=== PATIENT | male | born 1950 | race Caucasian/White ===

== ENCOUNTER 2018-06-11 17:33 | Observation (INO) ==
[2018-06-11] MEDS ORDERED: Sod Chloride 0.9% Inj 1,000 ML IV.CONT SCH (18:00)
--- NOTE | 2018-06-11 18:11 | ED ---
HPI General Chief complaint: Medical Clearance Stated complaint: Dr Sent/OR Time Seen by Provider: 06/11/18 17:50 Source: patient Mode of arrival: ambulatory Limitations: no limitations History of Present Illness HPI Narrative: 67-year-old male complains of partial vision loss on the left eye. Patient started having a lot of floaters and flashes in from the left eye 3 days ago. Patient was seen by card cutter helper Dr. Sherman 3 days ago. Patient was advised to follow with him in 8 weeks from that visit. Patient was advised to go to emergency room immediately if any problem with vision loss. Patient states that he has a shadow in from the left eye since yesterday evening. Patient states that he lost two thirds of the vision field inferiorly since yesterday evening. Patient denies any eye pain. Patient was seen in emergency room this morning and was sent to see an card cutter helper Dr. Sullivan. Patient was advised that he has retinal detachment and required surgery to the left eye this evening. Patient was advised to go back to the emergency room at [facility] to be admitted for surgery. Patient has Lasik surgery to the eyes 3 years ago. Patient status post cataract surgery to the eyes a year and a half ago. Patient has history of hyperlipidemia. complaint: Reports medical clearance requested Onset (ago): day(s) Reason for Medical Clearance: medical condition Place: home Alleged Intoxication: No Compliant with Home Medications: Yes Traumatic Symptoms: Reports denies traumatic injury Associated Symptoms: Reports other (Partial vision loss left eye) Treatments Prior to Arrival: Reports none Home Medications Medication Instructions Recorded Confirmed aspirin [Aspir-81] 81 mg PO DAILY 06/11/18 06/11/18 multivitamin 1 tab PO DAILY 06/11/18 06/11/18 pravastatin 20 mg PO HS 06/11/18 06/11/18 Allergies Allergy/AdvReac Type Severity Reaction Status Date / Time No Known Allergies Allergy Verified 06/11/18 17:41 Review of Systems ROS: all other systems reviewed are negative [facility] Medical History Medical History Hyperlipidemia (Acute) Surgical History Surgical History History of tonsillectomy (Acute) Social History Social History Substance History: No History of Abuse Second Hand Smoke Exposure: No Smoking Status: Former smoker How Often Do You Have a Drink Containing Alcohol: 4 or more times a week Recent Travel in [facility] within the Last 8 Weeks: No Recent Out of Country Travel within the Last 8 Weeks: No Immunization History Tetanus Immunization: <5 Years Exam Narrative Exam Narrative: GENERAL: Well-nourished, well-developed patient. SKIN: Focused skin assessment warm/dry. HEAD: Normocephalic. EYES: No scleral icterus. No injection or drainage. Both eyes are dilated bilaterally. NECK: Supple, trachea midline. No JVD or lymphadenopathy. CARDIOVASCULAR: Regular rate and rhythm without murmurs, gallops, or rubs. RESPIRATORY: Breath sounds equal bilaterally. No accessory muscle use. GASTROINTESTINAL: Abdomen soft, non-tender, nondistended. MUSCULOSKELETAL: No cyanosis, or edema. BACK: Nontender without obvious deformity. No CVA tenderness. Neurologic exam normal. Course Initial Documented Vital Signs Temperature 98.0 F 06/11/18 17:39 Pulse Rate 118 H 06/11/18 17:39 Respiratory Rate 18 06/11/18 17:39 Blood Pressure 175/86 H 06/11/18 17:39 Pulse Oximetry 99 06/11/18 17:39 Last Documented Vital Signs Temperature 98.0 F 06/11/18 17:39 Pulse Rate 121 H 06/11/18 17:49 Respiratory Rate 17 06/11/18 17:49 Blood Pressure 175/86 H 06/11/18 17:49 Pulse Oximetry 100 06/11/18 17:49 Medical Decision Making MDM Narrative Medical decision making narrative: 67-year-old male with retinal detachment left eye. Needs medical clearance for surgery. Medical Screen Exam Complete: Yes Emergency Medical Condition: Yes Lab Data Result diagrams: 06/11/18 18:00 06/11/18 18:00 Lab Results 06/11/18 06/11/18 Range/Units 18:00 18:20 WBC 8.8 (4.0-11.0) th/mm3 RBC 4.88 (4.50-5.90) mil/mm3 Hgb 15.3 (13.0-17.0) gm/dL Hct 45.4 (39.0-51.0) % MCV 93.2 (80.0-100.0) fL MCH 31.4 (27.0-34.0) pg MCHC 33.7 (32.0-36.0) % RDW 14.0 (11.6-17.2) % Plt Count 371 (150-450) th/mm3 MPV 7.4 (7.0-11.0) fL Neut % (Auto) 56.5 (16.0-70.0) % Lymph % (Auto) 31.7 (9.0-44.0) % [place] % (Auto) 9.7 H (0.0-8.0) % Eos % (Auto) 1.3 (0.0-4.0) % Baso % (Auto) 0.8 (0.0-2.0) % Neut # (Auto) 5.0 (1.8-7.7) th/mm3 Lymph # (Auto) 2.8 (1.0-4.8) th/mm3 [place] # (Auto) 0.9 (0.0-0.9) th/mm3 Eos # (Auto) 0.1 (0.0-0.4) th/mm3 Baso # (Auto) 0.1 (0.0-0.2) th/mm3 WBC Differential . Differential Comment Auto diff final Urine Color Yellow (Yellw/Straw) Urine Clarity Hazy H (Clear) Urine pH 6.0 (5.0-8.5) Ur Specific [place] 1.014 (1.002-1.035) Urine Protein Negative (Neg-Trace) mg/dL Urine Glucose (UA) Negative (Negative) mg/dL Urine Ketones Trace H (Negative) mg/dL Urine Occult Blood Small H (Negative) Urine Nitrate Negative (Negative) Urine Bilirubin Negative (Negative) Urine Urobilinogen Less than 2 (Less than 2) mg/dL Ur Leukocyte Esterase Negative (Negative) Urine RBC 3 (0-3) /hpf Urine WBC 1 (0-5) /hpf Urine Mucus Few H (Occasional) /lpf Micro UA Comment Culture not ind Ur Microscopic Review Not Reportable Urine Culture Comments Culture not ind Imaging Data Radiologist's impression: Chest X-Ray 06/11/18 17:59 CONCLUSION: The lungs are hyperinflated consistent with COPD. No acute infiltrate or effusion. Discharge Plan Discharge Disposition Patient Disposition: ED Admit(ED Internal Use Only) Discharge Order Discharge Orders: ED Use Only Admit Order (Routine); Ordered 06/11/18 Ordered By: Raleigh Matos Discharge Details Diagnosis: Retinal detachment with retinal defect of left eye Physicians Team ED Provider: Raleigh Matos Primary Care Provider: Joyce Walton Attending Provider: Cholo Sullivan Status ED Status: Admitted Observation Patient
--- NOTE | 2018-06-11 18:18 | XR ---
EXAM DATE: 06/11/2018 6:13 PM EST AGE/SEX: 67 years / Male INDICATIONS: Patient was sent by his doctor for a detached retina. No chest complaints. CLINICAL DATA: This is the patient's initial encounter. Patient reports that signs and symptoms have been present for 2 days and indicates a pain score of 0/10. MEDICAL/SURGICAL HISTORY: None. None. [place] [facility] [place] . FINDINGS: 2 portable frontal views of the chest show the lungs to be hyperaerated. No infiltrate or effusion. H eart is normal in size. Degenerative thoracic spine. CONCLUSION: The lungs are hyperinflated consistent with COPD. No acute infiltrate or effusion. Electronically signed by: Antony Mendoza MD Board Certified Radiologist 06/11/2018 6:17 PM EST
[2018-06-11] MEDS ORDERED: Moxifloxacin 0.5% Opth Drops 3 ML Bottle LEFT EYE ONE (18:33)
[2018-06-11 18:35] LABS: Baso # (Auto) 0.1 th/mm3 (0.0-0.2); Baso % (Auto) 0.8 % (0.0-2.0); Eos # (Auto) 0.1 th/mm3 (0.0-0.4); Eos % (Auto) 1.3 % (0.0-4.0); Hematocrit 45.4 % (39.0-51.0); Hemoglobin 15.3 gm/dL (13.0-17.0); Lymph # (Auto) 2.8 th/mm3 (1.0-4.8); Lymph % (Auto) 31.7 % (9.0-44.0); Mean Corpuscular HGB Conc 33.7 % (32.0-36.0); Mean Corpuscular Hemoglobin 31.4 pg (27.0-34.0); Mean Corpuscular Volume 93.2 fL (80.0-100.0); Mean Platelet Volume 7.4 fL (7.0-11.0); Mono # (Auto) 0.9 th/mm3 (0.0-0.9); Mono % (Auto) 9.7 % (0.0-8.0); Neut % (Auto) 56.5 % (16.0-70.0); Platelet Count 371 th/mm3 (150-450); Red Blood Count 4.88 mil/mm3 (4.50-5.90); White Blood Count 8.8 th/mm3 (4.0-11.0)
[2018-06-11 18:39] LABS: Bilirubin,Urine Negative (Negative); Clarity,Urine Hazy (Clear); Color,Urine Yellow (Yellw/Straw); Glucose,Urine (UA) Negative (Negative); Leukocyte Esterase,Urine Negative (Negative); Mucus,Urine Few /lpf (Occasional); Nitrite,Urine Negative (Negative); Specific Gravity,Urine 1.014 (1.002-1.035)
[2018-06-11 18:45] LABS: Activated Partial Thrombo Time 32.9 sec (23.4-31.7); INR 1.1 Ratio
[2018-06-11] MEDS: Tropicamide 1% Opth Drops 15 ML Bottle LEFT EYE SCH ×4 (18:58→19:44)
[2018-06-11] MEDS: Cyclopentolate 1% Opth Drops 2 ML Bottle LEFT EYE SCH ×5 (18:58→19:44)
[2018-06-11] MEDS: prednisoLONE Acetate 1% Opth Susp 5 ML Bottle LEFT EYE SCH ×2 (18:59→19:19)
[2018-06-11] MEDS: Atropine 1% Opth Drops 2 ML Bottle LEFT EYE SCH ×4 (18:59→19:46)
[2018-06-11] MEDS: OPTH LEFT EYE SCH ×4 (19:00→19:48)
[2018-06-11] MEDS: PHENYLEPHRINE 2.5% LEFT EYE SCH ×4 (19:00→19:48)
[2018-06-11 19:04] LABS: Alanine Aminotransferase 27 U/L (12-78); Alkaline Phosphatase 106 U/L (45-117); Total Protein 7.8 g/dL (6.4-8.2)
[2018-06-11 19:06] LABS: Anion Gap 7 meq/L (5-15); Aspartate Aminotransferase 23 U/L (15-37); Blood Urea Nitrogen 10 mg/dL (7-18); Calcium 8.8 mg/dL (8.5-10.1); Carbon Dioxide 27.1 meq/L (21.0-32.0); Chloride 105 meq/L (98-107); Glomerular Filtration Rate 79 mL/min (>89); Glucose,Random 94 mg/dL (74-106); Potassium 4.1 meq/L (3.5-5.1); Sodium 139 meq/L (136-145)
[2018-06-11] MEDS ORDERED: Phenylephrine/NS 1000 MCG/10ML Syringe IV.PUSH ONE (20:20)
[2018-06-11] MEDS ORDERED: Lidocaine PF 1% Inj 5 ML Syringe OTHER ONE (20:20)
[2018-06-11] MEDS ORDERED: Balanced Salt Opth Irrigation 15 APPLIC/15 ML Bottle ONE (20:26)
[2018-06-11] MEDS ORDERED: Bupivacaine PF 0.75% Inj 10 ML Vial ONE (20:27)
[2018-06-11] MEDS ORDERED: LIDOCAINE 4% TOPICAL ONE (20:27)
[2018-06-11] MEDS ORDERED: Tobramycin/Dexamethasone Opth Drops 5 ML Bottle ONE (22:13)
[2018-06-11] MEDS ORDERED: fentaNYL Citrate Inj 100 MCG/2 ML Ampul ONE (22:47)
[2018-06-11] MEDS ORDERED: Acetaminophen 500 MG Tablet PO PRN (22:59)
[2018-06-12] MEDS ORDERED: Cyclopentolate 1% Opth Drops 2 ML Bottle LEFT EYE SCH (06:00)
[2018-06-12 08:23] VITALS: BP 128/71; PULSE 117; RESP 20; TEMP 97.3; O2SAT 94
[2018-06-12] MEDS ORDERED: Atropine 1% Opth Drops 2 ML Bottle LEFT EYE SCH (09:00)
[2018-06-12] MEDS ORDERED: Moxifloxacin 0.5% Opth Drops 3 ML Bottle LEFT EYE SCH (09:00)
[2018-06-12] MEDS ORDERED: prednisoLONE Acetate 1% Opth Susp 5 ML Bottle LEFT EYE SCH ×2 (09:00)
--- NOTE | 2018-06-12 14:15 | ECG ---
Date Performed: 06/11/2018 Time Performed: 18:21:01 PTAGE: 67 years EKG: Sinus rhythm WITH OCCASIONAL VENTRICULAR PREMATURE COMPLEXES BORDERLINE LEFT AXIS DEVIATION BORDERLINE ECG PREVIOUS TRACING : 05/16/2010 15.23 DOCTOR: Vamsi Gonzales Interpretating Date/Time 06/12/2018 14:10:47
--- NOTE | 2018-06-16 15:22 | MP ---
cc: Cholo Sullivan MD DATE OF OPERATION: 06/11/2018 PREOPERATIVE DIAGNOSIS: Large retinal detachment through the macula, left eye. POSTOPERATIVE DIAGNOSIS: Large retinal detachment through the macula, left eye. OPERATION PERFORMED: Pars plana vitrectomy, retinal attachment repair, endolaser, air-fluid exchange, and insertion of 15% C3F8 gas, left eye. COMPLICATIONS: None. ESTIMATED BLOOD LOSS: Less than 1 mL. ANESTHESIA: General. INDICATIONS FOR PROCEDURE: The patient presented with severe vision loss in his left eye. The patient was found to have a large retinal detachment extending through his macula. The patient elected for surgical correction, understanding risks, benefits, and alternatives. PROCEDURE: After informed consent was obtained, the patient was brought to the operating room. General anesthesia was established. The left eye was prepped and draped in a sterile fashion with Betadine in the conjunctival fornix. A 3-port pars plana vitrectomy was established with a self-retaining infusion cannula. Core vitreous was evacuated. The vitreous traction to the peripheral retina was relieved. Subretinal fluid was removed via existing breaks while PFO was instilled and the retina nicely reattached. Air-fluid exchange was carried out and the retina remained nicely attached. Endolaser was applied surrounding multiple retinal breaks in nearly 360 degrees. Then, 15% C3F8 gas was instilled. Trocars removed and sclerotomies closed with 7-0 Vicryl suture. The conjunctiva was reapproximated with 6-0 plain gut. Subconjunctival injection of Ancef and dexamethasone were given. The eye was patched with tobramycin ointment. The patient was brought to recovery room in stable condition and will continue to follow up with [facility] for his postoperative care. Cholo Sullivan MD KEW/ts , 02:03 PM , 02:10 PM
== END 2018-06-12 10:30 | disposition home or self-care (01) ==
LOC: NEDA 17:33 → NEPE 17:33 → NEDA 20:00 → N05 23:35
PROVIDERS: ADMIT Ophthalmology; ATTEND Ophthalmology
CPT/HCPCS: 71010; 71045; 80053; 81001; 85025; 85610; 85730; 93005; 99281; 99285; G0378; J0131; J0171; J0690; J1100; J2370; J2405; J2704; J3010; J7030